=== PATIENT | male | born 1955 | race Caucasian/White ===

== ENCOUNTER 2018-03-19 11:10 | Day surgery (SDC) | payer BC ==
[2018-03-19] VITALS (12 sets, daily range): BP systolic 129–163; BP diastolic 53–96
[~2018-03-19] VITALS: Ht 167.6 cm; Wt 111.5 kg
[~2018-03-19 11:10] MED LIST: ALLO100T PO; ASPI-1265 PO; BENA20TA82 PO; CLOP75TA35 PO; IBUPROFEN PM; METO-539 PO; SIMV20TA5 PO
[2018-03-19] MEDS ORDERED: LIDOcaine 1% (10mg/ml) 2ml vial ONE (11:32)
[2018-03-19] MEDS ORDERED: nitroGLYCERIN 0.4mg SUBLingual tab SL PRN (11:35)
[2018-03-19] MEDS ORDERED: diphenhydrAMINE 25mg capsule PO PRN (11:35)
[2018-03-19] MEDS ORDERED: normal saline 1000ml 1,000 ML IV SCH (11:35)
[2018-03-19] MEDS ORDERED: LORazepam 0.5 MG tablet PO PRN (11:35)
[2018-03-19] MEDS ORDERED: IBUP1TAB11 PO (11:59)
[2018-03-19] MEDS ORDERED: METO-539 PO (12:01)
[2018-03-19] MEDS ORDERED: NITR0.4T51 SL (12:01)
[2018-03-19] MEDS ORDERED: fentaNYL/PF 50MCG/1 ML 2ML syringe ONE (14:07)
[2018-03-19] MEDS ORDERED: midazolam 2 mg/2 ml injection ONE (14:07)
[2018-03-19] MEDS ORDERED: iohexol 350MG/ML 100ml bottle IV ONE (14:08)
[2018-03-19] MEDS ORDERED: iohexol 350 MG/ML 50ML vial IV ONE ×3 (14:08→14:59)
[2018-03-19] MEDS ORDERED: LIDOcaine 1% (10mg/ml)w/preservative injection 20ml MDV ONE (14:08)
[2018-03-19] MEDS ORDERED: proCHLORperazine 10 MG/2 ml inj IV PRN (16:45)
[2018-03-19] MEDS ORDERED: ondansetron/PF 4mg/2ml inj IV PRN (16:45)
[2018-03-19] MEDS ORDERED: HYDROcodone/acetaminophen 10/325mg tab PO PRN (16:45)
[2018-03-19] MEDS ORDERED: HYDROcodone/acetaminophen 5mg/325mg tablet PO PRN (16:45)
== END 2018-03-19 20:20 | disposition home or self-care (01) ==
LOC: SSTAY O 11:10
PROVIDERS: ATTEND Internal Medicine Cardiovascular Disease
DX: I25.118 Atherosclerotic heart disease of native coronary artery with other forms of angina pectoris (principal); I25.2 Old myocardial infarction; I10 Essential (primary) hypertension; E78.5 Hyperlipidemia, unspecified; E11.9 Type 2 diabetes mellitus without complications; M19.90 Unspecified osteoarthritis, unspecified site; Z88.0 Allergy status to penicillin; Z95.5 Presence of coronary angioplasty implant and graft; Z79.82 Long term (current) use of aspirin; Z72.89 Other problems related to lifestyle; Z79.1 Long term (current) use of non-steroidal anti-inflammatories (NSAID); Z96.651 Presence of right artificial knee joint; Z79.899 Other long term (current) drug therapy; Z98.890 Other specified postprocedural states
CPT/HCPCS: 93005; 93458; 93567; 99152; 99153; A6257; C1760; C1769; J1644; J2001; J2250; J3010; J3490; J7030; Q0163; Q9967; A4620